=== PATIENT | male | born 1970 | race Caucasian/White ===

== ENCOUNTER → 2017-06-16 | Outpatient (CLI) | payer OTHER ==
[~2017-06-16] MED LIST: GADOBUTROL 10 MMOL/10 ML VIAL IV ONE
--- NOTE | 2017-06-16 16:40 | KCIC ---
MRI of the abdomen without and with contrast 06/16/2017 CLINICAL HISTORY: Possible lesion seen within the pancreas on recent CT scan. TECHNIQUE: Unenhanced in and out of phase T1-weighted axial, fat saturated T2-weighted axial and coronal and T2-weighted axial images of the abdomen with attention to the pancreas were obtained. After the intravenous administration of 10 cc of Gadavist, enhanced fat saturated T1 weighted axial images through the abdomen were obtained. FINDINGS: Comparison is made to patient's CT scan of the abdomen performed at [facility] dated 05/16/2017. The liver, spleen, adrenal glands and kidneys are within normal limits. The pancreas is within normal limits in morphology and signal characteristics. No abnormalityf of the pancreas is seen. The low-attenuation area seen within the body of the pancreas on the patient's CT scan is felt to represent normal fat. The abdominal aorta tapers normally. The marrow signal of the visualized bony structures is within normal limits. IMPRESSION: Negative study. Electronically signed by: Prem Luque MD (06/16/2017 4:36 PM) [facility]
== END | disposition home or self-care (01) ==
LOC: KCIC MRI 11:27
PROVIDERS: ATTEND Family Medicine
DX: K86.2 Cyst of pancreas (principal)
CPT/HCPCS: 74183; A9585